=== PATIENT | male | born 1975 | race Caucasian/White ===

== ENCOUNTER 2018-08-07 10:37 | Outpatient (CLI) | payer OTHER ==
--- NOTE | 2018-08-07 11:38 | CT ---
CT Pelvis WO Con HISTORY: Left groin pain on and off for one year. COMPARISON: None. FINDINGS: There is no evidence of any pelvic mass or significant adenopathy. No significant inguinal adenopathy. There is no evidence of a inguinal hernia. Review of osseous structures show symmetric appearing SI joints. Hip joints appear normal and symphys is region appears unremarkable. IMPRESSION: Unremarkable CT of pelvis. If patient has symptoms that would suggest the possibility of a sports-type hernia further evaluation with MRI using the sports hernia protocol would be recommended.
== END 2018-08-07 10:38 | disposition home or self-care (01) ==
LOC: TBSIIMAG 10:37
PROVIDERS: ATTEND Neurological Surgery
DX: R10.2 Pelvic and perineal pain (principal)
CPT/HCPCS: 72192